=== PATIENT | male | born 1990 | race Caucasian/White ===

== ENCOUNTER 2018-09-10 11:43 | Day surgery (SDC) | payer OTHER ==
[~2018-09-10 11:43] MED LIST: Lactated Ringers 1,000 ML IV SCH; Lidocaine 2% 5 ML SDV ONE; Midazolam 1 MG/ML 2 ML SDV ONE; Propofol 200 MG/20 ML SDV ONE; Sodium Chloride 0.9% 10 ML SDV IV PRN; Sodium Chloride 0.9% 10 ML Syringe FLUSH PRN; Sodium Chloride 0.9% 2.5 ML Syringe FLUSH PRN; fentaNYL 100 MCG/2 ML SDV ONE
--- NOTE | 2018-09-10 12:20 | PCM.PREANE ---
Preanesthetic Assessment - Anesthesia/Transfusion/Family Hx Anesthesia History: Prior Anesthesia Without Reaction Family History of Anesthesia Reaction: No Transfusion History: No Prior Transfusion(s) - Review of Systems General: No Symptoms Pulmonary: No Symptoms Cardiovascular: No Symptoms Neurological: No Symptoms Other: Reports: None - Physical Assessment NPO Status Date: 09/09/18 O2 Sat by Pulse Oximetry: 97 Respiratory Rate: 16 Vital Signs: Last Vital Signs Temp 97.3 F 09/10/18 12:08 Pulse 73 09/10/18 12:08 Resp 16 09/10/18 12:08 BP 128/78 09/10/18 12:08 Pulse Ox 97 09/10/18 12:08 Height: 5 ft 10 in Weight: 108.409 kg ASA Class: 2 Mental Status: Alert & Oriented x3 Airway Class: Mallampati = 2 Dentition: Reports: Normal Dentition ROM/Head Extension: Full Lungs: Clear to Auscultation, Normal Respiratory Effort Cardiovascular: Regular Rate, Regular Rhythm - Allergies Allergies/Adverse Reactions: Allergies Allergy/AdvReac Type Severity Reaction Status Date / Time No Known Allergies Allergy Verified 09/07/18 08:52 - Blood Blood Available: No - Anesthesia Plan Pre-Op Medication Ordered: None - Acknowledgements Anesthesia Type Planned: General Anesthesia Pt an Appropriate Candidate for the Planned Anesthesia: Yes Alternatives and Risks of Anesthesia Discussed w Pt/Guardian: Yes Pt/Guardian Understands and Agrees with Anesthesia Plan: Yes Additional Comments: PMH: hx of GERD and PUD, has exercise induced asthma- no recent exacerbations, PLAN: ga/tiva PreAnesthesia Questionnaire HEENT History: Reports: Other (See Below) Other HEENT History: wears glasses Cardiovascular History: Reports: None Respiratory History: Reports: Other (See Below) Other Respiratory History: asthma as a child Gastrointestinal History: Reports: GERD, Other (See Below) Other Gastrointestinal History: hx gastric ulcer Genitourinary History: Reports: None Musculoskeletal History: Reports: Fracture Other Musculoskeletal History: hx fx arm Neurological History: Reports: Concussion Psychiatric History: Reports: None Endocrine/Metabolic History: Reports: Obesity/BMI 30+ Hematologic History: Reports: None Immunologic History: Reports: None Oncologic (Cancer) History: Reports: None Dermatologic History: Reports: None - Past Surgical History Head Surgeries/Procedures: Reports: None HEENT Surgical History: Reports: None Cardiovascular Surgical History: Reports: None Respiratory Surgical History: Reports: None GI Surgical History: Reports: EGD Male Surgical History: Reports: None Endocrine Surgical History: Reports: None Neurological Surgical History: Reports: None Musculoskeletal Surgical History: Reports: None Oncologic Surgical History: Reports: None - SUBSTANCE USE Smoking Status *Q: Never Smoker Recreational Drug Use History: No - HOME MEDS Home Medications: Home Meds Calcium Carbonate [Tums] 1 tab.chew CHEW ASDIRECTED PRN 09/07/18 [History] - CURRENT (IN HOUSE) MEDS Current Meds: Current Medications Lactated Ringer's (Ringers, Lactated) 1,000 mls @ 125 mls/hr IV ASDIRECTED PAVITHRA Last Admin: 09/10/18 12:14 Dose: 125 mls/hr Sodium Chloride (Saline Flush) 10 ml FLUSH ASDIRECTED PRN PRN Reason: Keep Vein Open Sodium Chloride (Saline Flush) 2.5 ml FLUSH ASDIRECTED PRN PRN Reason: Keep Vein Open Sodium Chloride (Normal Saline) 10 ml IV ASDIRECTED PRN PRN Reason: IV Use Discontinued Medications Fentanyl (Sublimaze) Confirm Administered Dose 100 mcg .ROUTE .STK-MED ONE Stop: 09/10/18 08:52 Lactated Ringer's (Ringers, Lactated) 1,000 mls @ 125 mls/hr IV ASDIRECTED [facility] Lidocaine (Xylocaine-Mpf 2%) Confirm Administered Dose 5 ml .ROUTE .STK-MED ONE Stop: 09/10/18 08:52 Midazolam HCl (Versed 1 Mg/Ml) Confirm Administered Dose 2 mg .ROUTE .STK-MED ONE Stop: 09/10/18 08:52 Propofol (Diprivan 20 Ml) Confirm Administered Dose 200 mg .ROUTE .STK-MED ONE Stop: 09/10/18 08:51
[2018-09-10] MEDS ORDERED: Ketamine 500 mg/10 ML MDV ONE (13:27)
[2018-09-10] MEDS ORDERED: Propofol 200 MG/20 ML SDV ONE (13:47)
--- NOTE | 2018-09-10 14:04 | PCM.OPNOTE ---
- General Post-Op/Procedure Note Date of Surgery/Procedure: 09/10/18 Operative Procedure(s): egd w bx Findings: see [id number] Pre Op Diagnosis: gerd Post-Op Diagnosis: Same Anesthesia Technique: Moderate Sedation Primary Surgeon: Barry Rice Pathology: egd bx Complications: None Condition: Good
--- NOTE | 2018-09-10 14:05 | PCM.SN ---
- Free Text/Narrative Note: start on omeprazole 40 mg qd po X1 mo, w 1 refill, likely gi consult
--- NOTE | 2018-09-10 14:12 | PCM.POSTAN ---
POST ANESTHESIA ASSESSMENT - MENTAL STATUS Mental Status: Alert, Oriented - RESPIRATORY Respiratory Status: Respiratory Rate WNL, Airway Patent, O2 Saturation Stable - CARDIOVASCULAR CV Status: Pulse Rate WNL, Blood Pressure Stable - GASTROINTESTINAL GI Status: No Symptoms - POST OP HYDRATION Hydration Status: Adequate & Stable
--- NOTE | 2018-09-10 14:12 | PCM48HPAN ---
Post Anesthesia Note - EVALUATION WITHIN 48HRS OF ANESTHETIC Vital Signs in Normal Range: Yes Patient Participated in Evaluation: Yes Respiratory Function Stable: Yes Airway Patent: Yes Cardiovascular Function Stable: Yes Hydration Status Stable: Yes Pain Control Satisfactory: Yes Nausea and Vomiting Control Satisfactory: Yes Mental Status Recovered: Yes Resp Rate: 15
--- NOTE | 2018-09-10 22:10 | OR ---
SURGEON: Barry Rice MD DATE OF PROCEDURE: 09/10/2018 PREOPERATIVE DIAGNOSES: Acid reflux, abdominal pain. POSTOP DIAGNOSES: Acid reflux, abdominal pain. PROCEDURE PERFORMED: EGD with biopsy. COMPLICATION: None. DESCRIPTION OF PROCEDURE: EGD: The patient was taken to the endoscopy room, and with the PSYCHOLOGY ASSISTANT, Diprivan was administered. A well-lubricated EGD scope was gently inserted through the oropharynx, down the esophagus, passing through the gastroesophageal junction, into the stomach. The mucosa was examined upon the passage. Any etiology will be noted. Once in the stomach, we continued to advance to the distal antrum, passed through the pylorus into the second portion of the duodenum. Again, the mucosa was examined for any abnormality and etiology. The scope was then retrieved back to the stomach and then retroflexed to look at the fundus of the stomach. If a biopsy was indicated, we will biopsy the antrum, body, and gastroesophageal junction. The air will be sucked out while the scope is retrieved to reduce the patient's discomfort. The patient tolerated the procedure well. There were no intraoperative complications. Dr. Rice was present through the whole procedure. Prior to surgery, a time-out had been called, the patient identified, procedure identified and antibiotic administered. FINDIN. The patient is easily sedated with PSYCHOLOGY ASSISTANT and Diprivan. Patient is soundly snoring. 2. Oropharynx and proximal esophagus are free of disease, inflammation, and stricture. Starting from 23 mm about a little bit lower the midesophagus, you have a skipped lesion of salmon color change pathologic for Alcantara esophagitis and it is very pronounced. Then, I went above 26 to 30 cm, we have more of those skipped lesions. Then patient seemed to have a Schatzki ring and inflamed, and stomach rugae is normal in appearance. Antrum is inflamed. Duodenum is normal in appearance. There is a layer of white color suggest lymphatic. Camera retrieved back to the stomach. Retroflexed to look at fundus of stomach, there is a mild hiatal hernia, biopsy done at antrum, body, and GE junction at 40 and GE junction at 26 biopsied and sent for pathology. During the whole study, there is no andrea blood or andrea ulcer observed and there is bile, but there is no food particle and sucked out the gas while scope pulling out. GAY / NIURKA /[id number]
== END 2018-09-10 14:28 | disposition home or self-care (01) ==
LOC: MW.SDS 11:43
PROVIDERS: ATTEND Surgery
DX: K21.0 Gastro-esophageal reflux disease with esophagitis (principal); K29.51 Unspecified chronic gastritis with bleeding; K22.70 Barrett's esophagus without dysplasia; K44.9 Diaphragmatic hernia without obstruction or gangrene; J45.990 Exercise induced bronchospasm; Z87.11 Personal history of peptic ulcer disease; Z79.899 Other long term (current) drug therapy
CPT/HCPCS: 43239; J2001; J2250; J2704; J3010; J7120; 88305; 88312

== ENCOUNTER 2019-03-22 08:37 | Emergency (ER) | payer OTHER ==
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
[2019-03-22 09:53] LABS: BLOOD UREA NITROGEN,BUN 15 mg/dL (7.0-18.0); CHLORIDE,CL 103 mmol/L (98-107); GLUCOSE RANDOM 94 mg/dL (74-106); LIPASE 151 U/L (73-393); SODIUM,NA 141 mmol/L (136-148)
== END 2019-03-22 10:13 | disposition home or self-care (01) ==
LOC: MW.ED 08:37
DX: S50.812A Abrasion of left forearm, initial encounter (principal); E66.9 Obesity, unspecified; J45.909 Unspecified asthma, uncomplicated; K21.9 Gastro-esophageal reflux disease without esophagitis; Z68.33 Body mass index [BMI] 33.0-33.9, adult; Z79.899 Other long term (current) drug therapy; Z88.1 Allergy status to other antibiotic agents; Z88.2 Allergy status to sulfonamides; V43.52XA Car driver injured in collision with other type car in traffic accident, initial encounter; Y92.410 Unspecified street and highway as the place of occurrence of the external cause
CPT/HCPCS: 36415; 70450; 70450-26; 71045; 71045-26; 72125; 72125-26; 73090-26-LT; 73090-LT; 73130-26-RT; 73130-RT; 80053; 83690; 85025; 99283; 99284-25

== ENCOUNTER 2019-04-27 07:46 | Day surgery (SDC) | payer OTHER ==
[~2019-04-27 07:46] MED LIST changes: -Lidocaine 2% 5 ML SDV ONE; -Midazolam 1 MG/ML 2 ML SDV ONE; -Propofol 200 MG/20 ML SDV ONE; -Sodium Chloride 0.9% 10 ML SDV IV PRN; -Sodium Chloride 0.9% 10 ML Syringe FLUSH PRN; -Sodium Chloride 0.9% 2.5 ML Syringe FLUSH PRN; -fentaNYL 100 MCG/2 ML SDV ONE
[2019-04-27] MEDS ORDERED: Midazolam 1 MG/ML 2 ML SDV ONE (08:03)
[2019-04-27] MEDS ORDERED: Propofol 200 MG/20 ML SDV ONE (08:03)
[2019-04-27] MEDS ORDERED: Lidocaine 2% 5 ML SDV ONE (08:06)
[2019-04-27] MEDS ORDERED: Glycopyrrolate 0.2 MG/ML SDV ONE (08:06)
--- NOTE | 2019-04-27 08:37 | PCM.PREANE ---
Preanesthetic Assessment - Anesthesia/Transfusion/Family Hx Anesthesia History: Prior Anesthesia Without Reaction Family History of Anesthesia Reaction: No Transfusion History: No Prior Transfusion(s) - Review of Systems General: No Symptoms Pulmonary: No Symptoms Cardiovascular: No Symptoms Other: Reports: None - Physical Assessment NPO Status Date: 04/27/19 NPO Status Time: 23:00 Vital Signs: Last Vital Signs Temp 97.3 F 04/27/19 08:00 Pulse 82 04/27/19 08:00 Resp 16 04/27/19 08:00 BP 130/70 04/27/19 08:00 Pulse Ox 95 04/27/19 08:00 Height: 5 ft 10 in Weight: 107.048 kg ASA Class: 2 Mental Status: Alert & Oriented x3 Airway Class: Mallampati = 1 Dentition: Reports: Normal Dentition ROM/Head Extension: Full Lungs: Clear to Auscultation, Normal Respiratory Effort Cardiovascular: Regular Rate, Regular Rhythm - Allergies Allergies/Adverse Reactions: Allergies Allergy/AdvReac Type Severity Reaction Status Date / Time Sulfa (Sulfonamide Allergy Hives Verified 04/21/19 15:56 Antibiotics) sulfamethoxazole Allergy Hives Verified 04/21/19 15:56 [From Bactrim] trimethoprim [From Bactrim] Allergy Hives Verified 04/21/19 15:56 - Blood Blood Available: No - Anesthesia Plan Pre-Op Medication Ordered: None - Acknowledgements Anesthesia Type Planned: General Anesthesia Pt an Appropriate Candidate for the Planned Anesthesia: Yes Alternatives and Risks of Anesthesia Discussed w Pt/Guardian: Yes Pt/Guardian Understands and Agrees with Anesthesia Plan: Yes Additional Comments: PMH: asthma- no sx for several years, GERD PLAN: tiva PreAnesthesia Questionnaire HEENT History: Reports: Other (See Below) Other HEENT History: wears glasses Cardiovascular History: Reports: None Respiratory History: Reports: Asthma Other Respiratory History: had exercise induced asthma as a child- no inhaler now Gastrointestinal History: Reports: GERD, PUD Other Gastrointestinal History: hx gastric ulcer Genitourinary History: Reports: None Musculoskeletal History: Reports: Arthritis Other Musculoskeletal History: hx of fx ulna/radius x2, hx of fx fingers and toes Neurological History: Reports: Other (See Below) Other Neuro History: fanily hx of Creutzfeld-Ronaldo disease (grandfather) Psychiatric History: Reports: None Endocrine/Metabolic History: Reports: Obesity/BMI 30+ Hematologic History: Reports: None Immunologic History: Reports: None Oncologic (Cancer) History: Reports: None Dermatologic History: Reports: None - Infectious Disease History Infectious Disease History: Reports: None - Past Surgical History Female Surgical History: - SUBSTANCE USE Smoking Status *Q: Never Smoker Recreational Drug Use History: No - HOME MEDS Home Medications: Home Meds Omeprazole 20 mg PO DAILY 03/22/19 [History] - CURRENT (IN HOUSE) MEDS Current Meds: Current Medications Lactated Ringer's (Ringers, Lactated) 1,000 mls @ 125 mls/hr IV ASDIRECTED PAVITHRA Last Admin: 04/27/19 08:10 Dose: 125 mls/hr Discontinued Medications Glycopyrrolate (Robinul) Confirm Administered Dose 0.2 mg .ROUTE .STK-MED ONE Stop: 04/27/19 08:07 Lidocaine (Xylocaine-Mpf 2%) Confirm Administered Dose 5 ml .ROUTE .STK-MED ONE Stop: 04/27/19 08:07 Midazolam HCl (Versed 1 Mg/Ml) Confirm Administered Dose 2 mg .ROUTE .STK-MED ONE Stop: 04/27/19 08:04 Propofol (Diprivan 20 Ml) Confirm Administered Dose 200 mg .ROUTE .STK-MED ONE Stop: 04/27/19 08:04
--- NOTE | 2019-04-27 09:13 | PCM.OPNOTE ---
- General Post-Op/Procedure Note Date of Surgery/Procedure: 04/27/19 Operative Procedure(s): egd w bx Findings: see [id number] Pre Op Diagnosis: esophagitis Post-Op Diagnosis: gerd Anesthesia Technique: Moderate Sedation Primary Surgeon: Barry Rice Pathology: sent Complications: None Condition: Good
--- NOTE | 2019-04-27 09:44 | OR ---
SURGEON: Barry Rice MD DATE OF PROCEDURE: 04/27/2019 PREOPERATIVE DIAGNOSIS: Esophagitis. POSTOPERATIVE DIAGNOSIS: Gastroesophageal reflux disease. PROCEDURE PERFORMED: Esophagogastroduodenoscopy with biopsy. DESCRIPTION OF PROCEDURE: EGD: The patient was taken to the endoscopy room, and with the [employer], Diprivan was administered. A well-lubricated EGD scope was gently inserted through the oropharynx, down the esophagus, passing through the gastroesophageal junction, into the stomach. The mucosa was examined upon the passage. Any etiology will be noted. Once in the stomach, we continued to advance to the distal antrum, passed through the pylorus into the second portion of the duodenum. Again, the mucosa was examined for any abnormality and etiology. The scope was then retrieved back to the stomach and then retroflexed to look at the fundus of the stomach. If a biopsy was indicated, we will biopsy the antrum, body, and gastroesophageal junction. The air will be sucked out while the scope is retrieved to reduce the patient's discomfort. The patient tolerated the procedure well. There were no intraoperative complications. Dr. Rice was present through the whole procedure. Prior to surgery, a time-out had been called, the patient identified, procedure identified and antibiotic administered. FINDINGS: The patient is easily sedated with [employer] and Diprivan, the patient is soundly snoring. Oropharynx and proximal esophagus are free of disease, inflammation, stricture. Starting from around 23 to around 25 cm, about a little bit lower than the midesophagus, there is a skip lesion with salmon-colored change. Close to the GE junction at 36, the patient seemed to have a starting formation of Schatzki ring and inflamed and also denuding of the mucosa. Stomach rugae are normal in appearance. Antrum is mildly inflamed. Duodenum is grossly normal. Retroflexed look at the fundus of stomach and there is a mild hiatal hernia. Biopsy done at antrum, body, and GE junction 3 times at around 36 and sucked out the gas while scope pulling out. During the whole study, there is no andrea blood or andrea ulcer observed and no bile and no food particle. GAY / NIURKA /[id number]
--- NOTE | 2019-04-27 10:44 | PCM.POSTAN ---
POST ANESTHESIA ASSESSMENT - MENTAL STATUS Mental Status: Alert, Oriented - VITAL SIGNS Vital Signs: Last Vital Signs Temp 97.9 F 04/27/19 09:25 Pulse 66 04/27/19 09:25 Resp 16 04/27/19 09:25 BP 112/58 L 04/27/19 09:25 Pulse Ox 96 04/27/19 09:25 - RESPIRATORY Respiratory Status: Respiratory Rate WNL, Airway Patent, O2 Saturation Stable - CARDIOVASCULAR CV Status: Pulse Rate WNL, Blood Pressure Stable - GASTROINTESTINAL GI Status: No Symptoms - POST OP HYDRATION Hydration Status: Adequate & Stable
--- NOTE | 2019-04-27 10:44 | PCM48HPAN ---
Post Anesthesia Note - EVALUATION WITHIN 48HRS OF ANESTHETIC Vital Signs in Normal Range: Yes Patient Participated in Evaluation: Yes Respiratory Function Stable: Yes Airway Patent: Yes Cardiovascular Function Stable: Yes Hydration Status Stable: Yes Pain Control Satisfactory: Yes Nausea and Vomiting Control Satisfactory: Yes Mental Status Recovered: Yes Vital Signs: Last Vital Signs Temp 97.9 F 04/27/19 09:25 Pulse 66 04/27/19 09:25 Resp 16 04/27/19 09:25 BP 112/58 L 04/27/19 09:25 Pulse Ox 96 04/27/19 09:25
== END 2019-04-27 10:00 | disposition home or self-care (01) ==
LOC: MW.SDS 07:46
PROVIDERS: ATTEND Surgery
DX: K21.0 Gastro-esophageal reflux disease with esophagitis (principal); K29.50 Unspecified chronic gastritis without bleeding; J45.990 Exercise induced bronchospasm; M19.90 Unspecified osteoarthritis, unspecified site; E66.9 Obesity, unspecified; Z68.33 Body mass index [BMI] 33.0-33.9, adult; Z88.2 Allergy status to sulfonamides; Z79.899 Other long term (current) drug therapy
CPT/HCPCS: 43239; J2001; J2250; J2704; J3490; J7120; 88305; 88312